=== PATIENT | female | born 1955 | race Caucasian/White ===

== ENCOUNTER 2020-07-12 11:44 | Outpatient (RCR) | payer OTHER, SELFPAY ==
[2020-07-12] MEDS: COVID-19 VACC, MRNA(PFIZER)/PF 30 MCG/0.3 ML SYRINGE IM (18:03)
[2020-08-02] MEDS: COVID-19 VACC, MRNA(PFIZER)/PF 30 MCG/0.3 ML SYRINGE IM (17:44)
== END 2020-10-08 23:59 ==
LOC: IMMUN 11:44
PROVIDERS: PCP Family Medicine; Visit Provider Family Medicine
DX: Z23 Encounter for immunization (principal)
CPT/HCPCS: 0001A; 0002A; 91300

== ENCOUNTER 2022-12-05 17:13 | Emergency (ER) | payer MEDICARE, SELFPAY ==
[2022-12-05 17:13] VITALS: BP 148/92; PULSE 84; RESP 16; TEMP 36.3; O2SAT 97; BMI 37.4
--- NOTE | 2022-12-05 17:25 | RAD_ITS ---
STUDY: X-RAY - LEFT WRIST REASON FOR EXAM: Female, 67 years old. INJURY TECHNIQUE: 3 view(s) of the wrist were obtained. COMPARISON: None. FINDINGS: Acute comminuted nondisplaced nonangulated fracture of the distal metaphysis radius with extension into the radiocarpal joint. Associated ulnar styloid avulsion fracture. Normal radiocarpal articulation. Normal distal radioulnar articulation. Normal carpal bones. There is widening of the scapholunate articulation suggesting a sprain of the scapholunate interosseous ligament. Normal carpometacarpal articulation of the thumb. Normal second through fifth carpometacarpal articulations. Normal visualized metacarpal bones. The soft tissue structures are unremarkable. RAD/Wrist min 3 Views IMPRESSION: 1. Acute comminuted nondisplaced nonangulated fracture of the distal radius with extension the radiocarpal joint with ulnar styloid avulsion fracture. 2. Suspect scapholunate ligament tear. Electronically Signed: Tevin Edmonds MD at 18:13 EDT ,
--- NOTE | 2022-12-05 17:48 | EX.ED.UPPERE ---
HPI History of Present Illness HPI Narrative: Left wrist injury. Chief Complaint: Upper Extremity Injury Informant: patient and spouse/S.O. Occured/Mechanism Mechanism/Context: Yes injury and Yes blunt trauma Onset/Context/Timing Onset: Today and Hours Context: Sudden Onset Timing: Continuous Quality of Pain: Dull and Aching Current Severity: Mild Maximum Severity: Mild Associated Symptoms Associated Symptoms: Negative for Parasthesia, Weakness or Loss of Funtion Narrative Narrative: 67-year-old [id number]-[id number] female. Stepped back off the porch lost her balance fell injuring her left wrist. No other injuries. Did not hit her head. No LOC. No blood thinners. No prior wrist surgery or fracture. Prior similar symptoms: No Recent Illness/Hospitalization: No PFSH PFSH Medical History Type 2 diabetes mellitus Allergy/AdvReac Type Severity Reaction Status Date / Time amoxicillin Allergy Itching Verified 12/05/22 17:16 cinnamon Allergy HIVES Verified 12/05/22 17:16 Social History Smoking Status: Never smoker ROS ROS ED ROS Narrative 10 days recent illness. Review of Systems ROS Unobtainable: Denies due to encephalopathy Constitutional Constitutional ED: Denies chills or fever(s) Eyes Eyes: Denies blurry vision ENT ENT ED: Denies ear pain Cardiovascular Cardiovascular: Denies chest pain Respiratory/Chest Respiratory/Chest: Denies cough Gastrointestinal Gastrointestinal: Denies abdominal pain Genitourinary Genitourinary ED: Denies dysuria Musculoskeletal Musculoskeletal: Denies back pain Integumentary Denies abscess Neurologic Neurologic: Denies headache(s) Psychiatric Psychiatric: Denies anxiety Endocrine Endocrinology: Denies cold intolerance Hematologic/Lymphatic Hematologic/Lymphatic: Denies easy bleeding Allergic/Immunologic Allergic/Immunologic ED: Denies mouth swelling EXAM Physical Exam Narrative Exam Narrative: Well-appearing 67-year-old female. Vital signs stable afebrile. Sitting upright in chair. Accompanied by her . H EENT exam unremarkable atraumatic. Neck nontender. Trachea midline. Lungs clear. Chest wall nontender. Heart regular rate and rhythm no murmur. Abdomen soft nontender. Back and spine nontender. Moving all 4 extremities. Left shoulder and elbow nontender. Left distal radius and ulna are tender and swollen. Normal radial pulse. Skin intact. Left hand neurovascular intact. Right upper extremity normal. Neurologically she is awake and alert with no focal motor deficits. GCS of 15. Const Vital Signs: 12/05/22 17:13 Temperature 97.4 F L Temperature Source Temporal Pulse Rate 84 Respiratory Rate 16 Blood Pressure 148/92 H Blood Pressure Mean 110 Pulse Ox 97 Oxygen Delivery Method Room Air Positive well nourished and well developed; Negative for cachectic, contractures or unkempt General Appearance ED: well developed and NAD; Negative for unkempt, cachectic, contractures, cyanotic or diaphoretic Nutritional Appearance: Negative for cachectic HEENT Reports moist mucous membranes normocephalic and atraumatic; Negative for trauma or tenderness Eyes PERRL and EOMs intact bilaterally General Eye ED: Negative for other Neck full ROM and supple General: Negative for tenderness Lymph Lymphatic: Negative for other Chest Wall inspection of chest normal and palpation of chest normal Resp normal respiratory effort and clear to auscultation bilaterally Effort and Inspection: Negative for pain with movement Auscultation: Negative for rales, rhonchi or wheezes Cardio regular rate, regular rhythm, S1 normal heart sound, S2 normal heart sound and no murmurs GI non-tender, non-distended and no masses Inspection: Negative for abdominal distention Auscultation: normoactive bowel sounds Palpation: soft; Negative for tender, guarding or rebound tenderness present Back/Spine no CVA tenderness General Back: Negative for CVA tenderness Cervical Spine: Negative for cervical spine tenderness Thoracic Spine / Upper Back: Negative for thoracic spinal tenderness Lumbar Spine / Lower Back: Negative for lumbar spinal tenderness Extremity normal to inspection and full ROM Extremity Narrative: Left wrist tender. Swollen. Pain with range of motion. Consistent with fracture. Left hand neurovascularly intact. Skin intact. Elbow and shoulder unremarkable. General Extremety ED: Yes edema General Extremity: edema Neuro oriented x3, CN's II-XII intact bilaterally, moves all extremities, no focal motor deficits and no sensory deficits noted Sensorium / Orientation: alert, oriented to person, oriented to place and oriented to time; Negative for orientation impaired, lethargic or stuporous Motor Exam: strength 5/5 throughout Psych mental status grossly normal Appearance: Negative for unkempt Attitude: No agitated Mood & Affect: Negative for depressed, anxious or tearful Skin General Skin Exam: Negative for petechiae Lesions: no lesions Rashes: no rashes Trauma: no lacerations or abrasions; Negative for abrasion, laceration or puncture MDM MDM MDM Narrative Medical decision making narrative: 67-year-old fell has a left wrist fracture distal radius distal ulna fracture. Placed in a short arm, well-padded AP splint. Orthopedic follow-up. She did not want a thing for pain. She will use Tylenol and Motrin at home. History & Record Review Discussion w/independent historian: Patient and Family Radiography Diagnostic Testing: Left wrist x-ray, 3 views, interpreted by myself shows a minimally displaced distal radius fracture and ulnar styloid fracture. I went over the x-rays with the patient. 3 views. Procedures Upper Extremity Splints Upper Extremity Splint: Orthoglass, Sling and - (Well-padded, Ortho-Glass AP splint. Patient tolerated procedure well. Was instructed on fracture and splint care. Orthopedic follow-up.) Splint Fabrication: Fabricated Location: Left Discharge Plan Triage Chief Complaint: Upper Extremity Injury ED Provider: Yusef Knight Dx/Rx/DC Orders Clinical Impression: Left wrist fracture, Fall Instructions: ED Fracture, Wrist, General Primary Care Provider: Donald Hawkins Referrals: Donald Hawkins DO [Primary Care Provider] - Hernesto Ruiz DO [Med Staff - Active Staff] - As soon as possible Activity Restrictions/Additional Instructions: He is not in the right wrist is much as possible decrease pain and swelling. Keep the splint dry and clean. Motrin and Tylenol for pain. Call and follow-up with the orthopedic physician on Wednesday. They will try to get you appointment this week. Disposition Disposition: Home, Self Care
[2022-12-05 18:14] VITALS: RESP 17
== END 2022-12-05 18:15 | disposition home or self-care (01) ==
PROVIDERS: Emergency Provider Emergency Medicine; PCP Family Medicine; Visit Provider Emergency Medicine
DX: S52.502A Unspecified fracture of the lower end of left radius, initial encounter for closed fracture (principal); E11.9 Type 2 diabetes mellitus without complications; S52.602A Unspecified fracture of lower end of left ulna, initial encounter for closed fracture; W13.8XXA Fall from, out of or through other building or structure, initial encounter
CPT/HCPCS: 29125; 73110; 99283

== ENCOUNTER 2023-02-18 13:30 | Outpatient (RCR) | payer MEDICARE, SELFPAY ==
--- NOTE | 2023-01-29 09:51 | HP.OTEVAL_ITS ---
Patient's Visit Information Visit Information Visit Information: GARDENIA BEARDEN is a 67 year old F, referred to Occupational Therapy by Dr. Hernesto Ruiz, , with a diagnosis of left carpal bone fx. Date of Evaluation: 01/28/23 Occupational Therapist: NICOLA Martin/Noemí, CHT Subjective Subjective: This 67 year old female was seen for OT eval with dx of left fx of carpal bone. DOI was Dec.05. went to ER and was referred to Dr. Ruiz. PT states casted for about 6 weeks - cast removed on 01/15/23. Pt arrives now at 7 weeks and 5 days from DOI. pt states she has noticed a decrease ROM of left forearm and wrist- has some tingling in thumb, IF and RF Median nerve distribution. 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 Pain left wrist: Current Pain Intensity: 4 Pain Intensity Range: 1 and 4 ROM Forearm: right supination/pronation WNL left supination N pronation WNL Wrist: right 70/50 left 40/20 Opposition: Kapandji opposition scale right 10 left 10 ROM Comments: pt demo with a decrease in left wrist and forearm ROM - Strength Clinical Implementation Specialist: right 55# left 10# Lateral Pinch: right 10# left 6# Tripod Pinch: right 8# left 4# Sensation Thumb: right 2.83 left 2.83 interpretation Normal sensation Index: right 2.83 left 2.83 interpretation Normal sensation Middle: right 2.83 left 2.83 interpretation Normal sensation Ring: right 2.83 left 2.83 interpretation Normal sensation Little: right 2.83 left 2.83 interpretation Normal sensation Quick DASH-Disab of Arm,Shoulder& Hand Quick DASH Score: 41.0700 Goals Goal:ROM equal to unaffected hand: Yes Goal:Clinical Implementation Specialist/Pinch strength at least 75% of unaffected hand: Yes Goal:No pain with affected hand use: Yes Goal:Full use of affected hand in daily activities including work: Yes Rehabilitation General Assessment: pt arrives following a left distal radius fx. pt had cast removed on 01/15/23. Pt demo with limited left wrist and forearm ROM and weakness increasing need of assistance for bilateral hand skills with ADLs and IADls. Pt would benefit from skilled OT services 2x week for 6 weeks to regain ROM and strength to return to her PLOF. Today therapist ed. pt on AROM and PROM wrist flex/ext and forearm supination- pt demo understanding and agrees to POC. Rehabilitation Potential: Good Anticipated Interventions Anticipated Interventions: A/AAROM/PROM, Strengthening, Triggerpoint Release, Modalities, Joint Protection/Energy Conservation, Ergonomic Education, Education re Diagnosis and Home Program Visit Plan Frequency: 1-2x /Week Duration: 6 Weeks General Plan: gain ROM for next week initiate light strengthening at week 8 unless otherwise specified by TEXT: Thank you for the opportunity to evaluate your patient. For Medicare and Medicare HMO plans, please review the plan of care and approve it. It will need to be FAXED BACK to us at [phone] for Medicare purposes. Please let me know if there are questions or concerns regarding this plan of care. Physician Signature: Date:
== END 2023-02-18 19:00 | disposition home or self-care (01) ==
LOC: OT 13:30
PROVIDERS: PCP Family Medicine; Referring Provider Orthopaedic Surgery; Visit Provider Orthopaedic Surgery
DX: S62.102D Fracture of unspecified carpal bone, left wrist, subsequent encounter for fracture with routine healing (principal)
CPT/HCPCS: 97110; 97166

== ENCOUNTER 2023-08-24 13:05 | Outpatient (RCR) | payer MEDICARE, SELFPAY | END 2023-08-31 23:59 | LOC: NS 13:05 | PROVIDERS: PCP Family Medicine; Referring Provider Orthopaedic Surgery; Visit Provider Orthopaedic Surgery | DX: Z71.3 Dietary counseling and surveillance (principal); E66.9 Obesity, unspecified; E11.9 Type 2 diabetes mellitus without complications; Z68.38 Body mass index [BMI] 38.0-38.9, adult | CPT/HCPCS: 97802 ==

== ENCOUNTER 2023-09-13 11:38 | Outpatient (RCR) | payer MEDICARE, SELFPAY | END 2023-10-01 23:59 | LOC: NS 11:38 | PROVIDERS: PCP Family Medicine; Referring Provider Orthopaedic Surgery; Visit Provider Orthopaedic Surgery | DX: Z71.3 Dietary counseling and surveillance (principal); E11.9 Type 2 diabetes mellitus without complications; E66.9 Obesity, unspecified; Z68.38 Body mass index [BMI] 38.0-38.9, adult | CPT/HCPCS: 97803 ==

== ENCOUNTER 2023-10-07 09:23 | Outpatient (RCR) | payer MEDICARE, SELFPAY | END 2023-10-31 23:59 | LOC: NS 09:23 | PROVIDERS: PCP Family Medicine; Referring Provider Orthopaedic Surgery; Visit Provider Orthopaedic Surgery | DX: Z71.3 Dietary counseling and surveillance (principal); E11.9 Type 2 diabetes mellitus without complications; E66.9 Obesity, unspecified; Z68.38 Body mass index [BMI] 38.0-38.9, adult | CPT/HCPCS: 97803 ==

== ENCOUNTER 2023-11-03 11:06 | Outpatient (RCR) | payer MEDICARE, SELFPAY | END 2023-12-01 23:59 | LOC: NS 11:06 | PROVIDERS: PCP Family Medicine; Referring Provider Orthopaedic Surgery; Visit Provider Orthopaedic Surgery | DX: Z71.3 Dietary counseling and surveillance (principal); E11.9 Type 2 diabetes mellitus without complications; E66.9 Obesity, unspecified; Z68.38 Body mass index [BMI] 38.0-38.9, adult | CPT/HCPCS: 97803 ==

== ENCOUNTER 2023-12-23 10:08 | Outpatient (RCR) | payer MEDICARE, SELFPAY | END 2024-01-01 23:59 | LOC: NS 10:08 | PROVIDERS: PCP Family Medicine; Referring Provider Orthopaedic Surgery; Visit Provider Orthopaedic Surgery | DX: Z71.3 Dietary counseling and surveillance (principal); E66.9 Obesity, unspecified; E11.9 Type 2 diabetes mellitus without complications | CPT/HCPCS: 97803 ==

== ENCOUNTER → 2024-02-02 | Outpatient (CLI) | payer MEDICARE, SELFPAY ==
--- NOTE | 2024-02-02 16:50 | CT_ITS ---
CT LEFT LOWER EXTREMITY WITH 3-D IMAGING CLINICAL INDICATION: Templating for left TKA. TECHNIQUE: Axial CT images of the left lower extremity (including left hip, left knee, and left ankle) was performed without IV contrast material. Coronal and sagittal reformats were provided. The protocol utilizes one or more of the following dose reduction techniques: automated exposure control, adjustment of mA and/or kV according to patient size, and/or use of iterative reconstruction technique. RADIATION DOSAGE (If Supplied By Facility): CTDIvol = ( 18.76 ) mGy, DLP = ( 1420.78 ) mGycm COMPARISON: Left knee radiographs dated 07/19/2023. FINDINGS: Bones: There is mild degenerative arthrosis of the left hip joint with mild marginal osteophyte formation. There is mild pubic symphysis arthrosis. There is tricompartment degenerative arthrosis of the left knee joint, most severe in the medial femorotibial compartment where there is severe joint space narrowing, marginal osteophyte formation, subchondral sclerosis, and intra-articular gas. There is osseous fragmentation adjacent to the medial malleolus, probably the sequelae of old avulsion injuries. Osseous structures are otherwise intact without evidence of acute fracture or dislocation. No lytic or blastic osseous masses. Soft Tissues: There is a small left knee joint effusion. The deep soft tissue structures are unremarkable. The superficial soft tissues are unremarkable without evidence of edema, hematoma, or foreign body. CT/Extremity Lower without Contra IMPRESSION: Tricompartment degenerative arthrosis of the left knee joint, most severe in the medial femorotibial compartment. Small left knee joint effusion. Electronically Signed: Gustavo Gilliland MD at 16:04 EDT ,
== END | disposition home or self-care (01) ==
LOC: CT 16:48
PROVIDERS: PCP Family Medicine; Referring Provider Orthopaedic Surgery; Visit Provider Orthopaedic Surgery
DX: M17.12 Unilateral primary osteoarthritis, left knee (principal)
CPT/HCPCS: 73700

== ENCOUNTER 2024-02-08 05:30 | Day surgery (SDC) | payer MEDICARE, SELFPAY ==
--- NOTE | 2024-01-31 08:20 | EKG12_ITS ---
Test Reason : PRE OP Blood Pressure : / mmHG Vent. Rate : 074 BPM Atrial Rate : 074 BPM P-R Int : 142 ms QRS Dur : 082 ms QT Int : 352 ms P-R-T Axes : 026 -08 055 degrees QTc Int : 390 ms Normal sinus rhythm Normal ECG Confirmed by AIDEE BARRERA, BEE ([id number]), market editor MARIO CHANDLER ([id number]) on 02/01/2024 6:34:24 AM Referred By: Hernesto Ruiz Confirmed By:BEE HOSKINS MD
[2024-01-31 08:50] LABS: Absolute Lymphocyte Count 1.38 X10^3/uL (0.83-4.51); Absolute Neutrophil Count 5.2 X10^3/uL (2.0-7.7); Basophil# 0.06 X10^3/uL; Basophil% 0.8 % (0-1); Eosinophil# 0.09 X10^3/uL; Eosinophils% 1.2 % (0-5); Hematocrit 39.8 % (37-47); Hemoglobin 12.9 g/dL (12.0-15.0); Lymphocyte # 1.38 X10^3/ul (0.83-4.51); Lymphocyte % 18.8 % (19-41); Mean Corp Hgb Conc 32.4 g/dL (32-36); Mean Corpuscular Hgb 31.3 pg (27.0-32.0); Mean Corpuscular Volume 96.6 fL (81-99); Mean Platelet Vol. 9.8 fl (6.2-12.0); Monocyte# 0.59 X10^3/uL; NRBC Flagged by Analyzer 0 % (0-5); Neutrophil # 5.22 X10^3/uL (2.7-7.7); Neutrophil % 70.9 % (47-70); Platelet Count 230 K/mm3 (150-450); RBC Distribution Width CV 12.2 % (11.6-14.6); RBC Distribution Width SD 43.5 fl (35.1-43.9); Red Blood Count 4.12 M/mm3 (4.2-5.4); White Blood Count 7.4 K/mm3 (4.4-11.0)
[2024-01-31 09:04] LABS: International Normalized Ratio 1.1
[2024-01-31 09:06] LABS: Partial Thromboplast Time 26.6 Seconds (24.1-36.2)
[2024-01-31 09:17] LABS: Anion Gap 7 (5-15); BUN 16 mg/dL (7-18); BUN/Creat Ratio 20.2 RATIO (10-20); Calcium,Total 9.2 mg/dL (8.5-10.1); Chloride 106 mmol/L (98-107); Creatinine, Serum 0.79 mg/dL (0.55-1.02); EST Glomerular Filtration Rate 77 mL/min (>60); Est Glom Filt Rate - Afr Amer 93 mL/min (>60); Glucose 208 mg/dL (74-106); Magnesium 1.8 mg/dL (1.6-2.6); Potassium 4.3 mmol/L (3.5-5.1); Sodium Level 139 mmol/L (136-145)
[2024-01-31 09:22] LABS: Hemoglobin A1c 5.9 % (3.8-5.6)
[2024-02-01 08:12] LABS: Fructosamine 234 umol/L (0-285)
[2024-02-08] VITALS (14 sets, daily range): BP systolic 94–146; BP diastolic 53–83; PULSE 61–80; RESP 10–18; TEMP 36.1–37.4; O2SAT 93–99; BMI 38.4
[2024-02-08] MEDS: Insulin Lispro 100 UNIT/ML INSULN.PEN SC ×2 (06:09→10:40)
[2024-02-08] MEDS: Acetaminophen 500 MG Tablet 1000 MG PO (06:10)
[2024-02-08] MEDS: Celecoxib 200 MG Capsule 400 MG PO (06:10)
[2024-02-08] MEDS: Gabapentin 600 MG Tablet PO (06:10)
[2024-02-08] MEDS: Scopolamine 1mg/72hr Patch 1 PATCH TD (06:11)
[2024-02-08 06:15] LABS: Bedside Glucose 340 mg/dL (74-106)
[2024-02-08] MEDS: Lactated Ringers 1,000 ML 15 ML IV (06:20)
[2024-02-08] MEDS: Magnesium 2 GM for ERAS IV (06:21)
--- NOTE | 2024-02-08 07:05 | HP.PCM_ITS ---
History and Physical Date of Admission: 02/08/24 [facility] [id number] [place] [address] OFFICE VISIT Date of Service: 01/12/24 MR#: [id number] Acct: [id number] Name: GARDENIA BEARDEN Rep #: [id number] : 1955 Provider: Dr. Hernesto Ruiz DO Age/Sex: 68/F Location: [facility] [place] Status: Signed Intake Vital Signs 12/22/2409:00 01/11/2410:57 Height 5 ft 4 in 5 ft 3.5 in Weight: 225 lb BMI 39.2 Intake Visit Reasons: BILATERAL KNEES Accompanied by: Is patient in pain?: Yes Allergies amoxicillin Allergy (Verified 01/12/24 10:58) Itchingcinnamon Allergy (Verified 01/12/24 10:58) HIVES Medications ?Medication ?Instructions ?Recorded ?Confirmed ?Type cholecalciferol (vitamin D3) 25 25 mcg PO DAILY 12/07/22 01/12/24 History mcg (1,000 unit) capsule ezetimibe 10 mg tablet 10 mg PO QHS 12/07/22 01/12/24 History glimepiride 4 mg tablet 4 mg PO DAILY 12/07/22 01/12/24 History ibuprofen 800 mg tablet 800 mg PO PRN PAIN 12/07/22 01/12/24 History lactobacillus combination no.4 3 3,000 mmu cells PO DAILY 12/07/22 01/12/24 History billion cell capsule (Probiotic) lisinopril 30 mg tablet 30 mg PO DAILY 12/07/22 01/12/24 History metoprolol succinate 100 mg 100 mg PO DAILY 12/07/22 01/12/24 History tablet,extended release 24 hr paroxetine HCl 20 mg tablet 20 mg PO QHS 12/07/22 01/12/24 History sulfasalazine 500 mg 0.5 g PO BID 12/07/22 01/12/24 History tablet,delayed release clonazepam 0.5 mg tablet 0.5 mg PO PRN ANXIETY 12/11/22 01/12/24 History albuterol sulfate 90 mcg/actuation inhalation 07/19/23 01/12/24 History aerosol inhaler fluticasone 250 mcg-salmeterol 50 1 inh inhalation BID 01/12/24 01/12/24 History mcg/dose blistr powdr for inhalation (Advair Diskus) Have you fallen in the past year?: No PFSH Medical History Wears contact lenses Wears glasses Post-menopausal Anxiety Alcohol use History of steroid therapy Rheumatoid arthritis Easy bruising Restless legs Back pain Syncope Dietary restriction Heartburn Shortness of breath on exertion CPAP (continuous positive airway pressure) dependence Non-smoker History of pain when walking Hypertension Type 2 diabetes mellitus Surgical History Hx of biopsy Hx of colonoscopy History of H/O knee surgery Hx of cholecystectomy H/O: hysterectomy Family History Father Diabetes HypertensionFather No problems noted. Mother Heart disease Social History household members: spouse Smoking Status: Never smoker alcohol intake: current HPI BILATERAL KNEES Details: This documentation accurately reflects the service provided and the decisions made by me, Dr. Hernesto Ruiz, DO 01/12/24 0809. Part of today?s visit was documented by Emma MERCER, acting as scribe. GARDENIA BEARDEN is a 68 year old F here today for continued bilateral knee pain. Patient did recently complete the Euflexxa series, her last injection was 08/25/23. She states that she may have gotten relief for a few month. She is here to discuss knee replacement. She states that her left knee is worse. Ortho Exam General General: Yes no acute distress Neurologic: Yes alert and Yes oriented x3 Psychologic: Yes reasonable and appropriate Right Knee Skin/Wound: Yes CDI, No erythema, No ecchymosis and No swelling Knee ROM: Yes ROM-Extension -20 to 0 (-5) and Yes ROM-Flexion 0-140 (90) Examination: Yes Med jt line tenderness, No Pain with flexion and No Pain with extention Stability: NML: Anterior Drawer, NML: Posterior Drawer, NML: Valgus 0, NML: Valgus 30, NML: Varus 0 and NML: Varus 30 Patella Translation: 1 Patella Grind: No KNEE: 1/4 pulses. Left Knee Skin/Wound: Yes CDI, No ecchymosis, No erythema and No swelling Homans Sign: No Knee ROM: Yes ROM-Extension -20 to 0 (-3) and Yes ROM-Flexion 0-140 (90) Examination: Yes med jt line tenderness Stability: NML: Anterior Drawer, NML: Posterior Drawer, NML: Valgus 0, NML: Valgus 30, NML: Varus 0 and NML: Varus 30 Patella Translation: 1 KNEE: 1/4 pulses. bilateral edema worse on left up to midleg. Head: Normocephalic Atraumatic Chest: symmetrical rise, non-labored breathing, no audible wheeze Abdomen: no guarding, non-rigid Supplemental Info 07/19/2023 x-ray right knee: Advanced knee arthrosis with varus deformity worse medial compartment and patellofemoral compartment 07/19/2023 x-ray left knee:Advanced knee arthrosis with varus deformity worse medial compartment and patellofemoral compartment 12/05/2022 x-ray left wrist: Intra-articular distal radius fracture relatively nondisplaced also extension just proximal to the distal radial ulnar joint , and some dorsal comminution , there is also a ulnar styloid fracture. In addition moderate first CMC joint arthrosis Coding Level of Care Code Off vis,est,level 3 Diagnoses Obesity E66.9 Obesity type: due to excess calories Primary osteoarthritis of left knee M17.12 Osteoarthritis type: primary Assessment and Plan Assessment and Plan (1) Obesity: Status: Acute Qualifiers: Obesity type: due to excess calories (2) Left knee DJD: Status: Acute Qualifiers: Osteoarthritis type: primary Qualified Code(s): M17.12 - Unilateral primary osteoarthritis, left knee Plan Patient is here today for follow-up on continued bilateral knee pain and would like to discuss knee replacement. She has exhausted all conservative treatment. Educated patient about the procedure. Patient did have a recent Euflexxa series and the last injection was 08/25/23 which did not give her much relief. Risks, benefits and alternatives of surgery reviewed including but not limited to bleeding, infection, nerve, artery and/or tissue damage, fracture, VTE, mechanical feel of the knee, continued pain, stiffness and expected post- operative course. Discussed with patient that after having a knee replacement the most important thing for her to do for the first 6 weeks is to work on her ROM. Advised patient that for the first year she will need an antibiotic for any dental work then after the first year she will only need the antibiotic for invasive dental work. Patient wishes to proceed with a left tka.?Follow up at 2 weeks post-op or sooner if pain, swelling, numbness or associated symptoms, or concerns develop. All questions answered. Patient in agreement of plan. She does wish to proceed with iovera She will need a CT scan for MAKOplasty She will be same-day surgery we will need medical clearance tentative surgery date February 08, 2024 Clinical Quality Measures Falls Risk Screening/Assistive Devices Have you fallen in the past year?: No 01/12/24 1308 <Electronically signed by Hernesto Ruiz DO> Date Hernesto Ruiz DO Cosigner Signature: Date (if applicable) CC: ~ I have examined the patient and the H&P has been reviewed. There are no clinical changes since date of exam.
[2024-02-08] MEDS: Cefazolin 2 GM in 0.9% Normal Saline (100mL Bag) 100 ML IV ×2 (07:30→13:22)
--- NOTE | 2024-02-08 07:30 | KNEE_PTH ---
PATIENT: GARDENIA BEARDEN LOC: [facility] U#:[id number] AGE/SX: 69/F ROOM: RE02/08/[address]: Dr. Hernesto Ruiz DO : 1955 BED: DIS: 02/08/2024 SPEC #: [id number] RECD: 02/08/24 13:14 STATUS: ANNA REGerry #: [id number] FRANKI: 02/08/24 07:[address]: Hernesto Ruiz DEPT: SURGICAL PATHOLOGY RECD BY: Ping gN ENTERED: 02/08/24 13:32 SP TYPE: TOTAL KNEE OTHR DR: Dr. Donald Hawkins DO Tissues: Knee, NOS Procedures: Decalcification bone/plaque Surgery Specimen Level IV HEADER OPERATION: Left total knee replacement robotic arm assist PRE-OP DIAGNOSIS: Obesity, left knee degenerative joint disease TISSUE SUBMITTED: Left knee bone and tissue MICROSCOPIC DIAGNOSIS Bone and tissue of left knee, total knee resection: Severe degenerative joint disease. AM: 02/11/2024 MICROSCOPIC DESCRIPTION Slides are reviewed. GROSS DESCRIPTION Received is one container designated bone and soft tissue left knee. The specimen consists of multiple fragments of collier-yellow bone measuring in aggregate 10.0. x 10.0 x 3.0 cm. No soft tissue is identified. A number of bony fragments contain articular surfaces consistent with tibial plateau and femoral condyle and displaying prominent osteophyte formation, eburnation and bone erosion. Chicken Buyer sections are submitted in one cassette after decalcification. / 02/08/2024 TC:5 CPT: 55597, 62640
--- NOTE | 2024-02-08 07:37 | PRE.ANES_ITS ---
ASA Classification* ASA Classification ASA Classification: 2 Assessment & Plan Anesthesia* Anesthesia Assessment Anesthesia Assessment: Discussed sedation and/or anesthesia options, risks, benefits, and alternatives with patient/parents/legal guardian/POA. Questions invited. The patient/parents/legal guardian/POA seems to understand and agrees to proceed with anesthesia plan. Reviewed the physical assessment, medical history, allergy history and patient home medications list prior to surgery/procedure/anesthetic and documented any changes. Performed airway and anesthesia risk assessments. Anesthesia Type Anesthesia Type: Spinal (see written pre anesthesia record for full assessment) and Block Anesthesia Focused Assessment* Temperature: 99.3 F Pulse Rate: 80 Blood Pressure: 146/72 Respiratory Rate: 18 Pulse Ox: 96 Airway Assessment Mouth opens: >3 cm Mallampati Score: II Focused Labs Anesthesia Preop lab: CBC WBC 7.4 K/mm3 (4.4-11.0) 01/31/24 08:31 RBC 4.12 M/mm3 (4.2-5.4) L 01/31/24 08:31 Hgb 12.9 g/dL (12.0-15.0) 01/31/24 08:31 Hct 39.8 % (37-47) 01/31/24 08:31 Plt Count 230 K/mm3 (150-450) 01/31/24 08:31 CHEMISTRY Potassium 4.3 mmol/L (3.5-5.1) 01/31/24 08:31 Sodium 139 mmol/L (136-145) 01/31/24 08:31 Magnesium 1.8 mg/dL (1.6-2.6) 01/31/24 08:31 BUN 16 mg/dL (7-18) 01/31/24 08:31 Creatinine 0.79 mg/dL (0.55-1.02) 01/31/24 08:31 Glucose 208 mg/dL (74-106) H 01/31/24 08:31 POC Glucose 340 mg/dL (74-106) H 02/08/24 05:51 COAG PT 14.0 SECONDS (11.7-14.9) 01/31/24 08:31 Pre-Assessment Diagnosis/Proposed Procedure Planned Operative Procedure(s): (L) ERAS Left Total Knee Replacement Robotic Arm Assisted Anesthesia History Anesthesia History - forging engineer: Anesthesia History - forging engineer Hx Hospitalization No 01/24/24 08:57 Any Problems With Anesthesia No 01/24/24 08:57 Cholinesterase deficiency No 01/24/24 08:57 You/Your Family Experience No 01/24/24 08:57 fever (hyperthermia) with Relationship Recent Exposure to Contagious No 02/08/24 05:52 Disease Does patient have nerve No 01/24/24 08:57 stimulator Patient instructed to have device shut off --Does patient have Pacemaker No 02/08/24 06:01 or ICD? When Was Last Pacemaker Check QUESTION #4 FULL TEXT: You/Your Family Experience fever (hyperthermia) with Anesthesia Last Oral Intake Last Oral intake: Last Oral Intake NPO since 04:30 02/08/24 06:01 Meds taken in AM with sips of Yes 02/08/24 06:01 water? Meds patient instructed to take am of surgery PONV PONV - forging engineer: PONV - forging engineer Female No 01/24/24 08:57 HX of Motion Sickness No 01/24/24 08:57 HX of N/V After Surgery No 01/24/24 08:57 Non-Smoker Yes 01/24/24 08:57 Duration of Surgery greater No 01/24/24 08:57 than 60 minutes Number of Risk Factors 1 01/24/24 08:57 PONV Score Low Risk 01/24/24 08:57 Height & Weight Height & Weight: Anesthesia: Height & Weight Height 5 ft 4 in 02/08/24 06:01 Weight: 101.605 kg 02/08/24 06:01 Body Mass Index (BMI) 38.4 02/08/24 06:01 Respiratory Assessment Respiratory Assessment - forging engineer: Respiratory Tract Infection Hx - forging engineer Hx Respiratory Tract Infection No 01/24/24 08:57 STOP Sleep Apnea STOP Sleep Apnea - forging engineer: STOP Sleep Apnea - forging engineer Hx Hypertension Yes 01/24/24 08:57 Hx Sleep Apnea Yes 01/24/24 08:57 CPAP No 01/24/24 08:57 BIPAP Yes 01/24/24 08:57 Do you snore loudly (louder than talking or can be heard Do you often feel tired/ fatigued/ sleepy during daytime? Has anyone observed you stop breathing during sleep? STOP Results Positive 01/24/24 08:57 QUESTION #5 FULL TEXT : Do you snore loudly (louder than talking or can be heard through closed doors)? Tobacco Use History Tobacco Use History - forging engineer: Tobacco Use History - forging engineer Tobacco Use Smoking Status Never smoker 01/24/24 08:57 Hx Tobacco Use No 01/24/24 08:57 Years Smoking Packs Smoked per Day Smoking Cessation Date was within the last 15 years Hx Smoking Cessation Date Hx Smoking Cessation Counseling Hematologic Medial History Hematologic Hx - forging engineer: Hematologic Medical Hx - general worker Hx of Blood Transfusion No 01/24/24 08:57 Hx of Transfusion in last 3 No 01/24/24 08:57 Months Date of Last Transfusion (if within last 3 months) Ever experience any problems No 01/24/24 08:57 with transfusion(s)? Specify any problems Hx of Preganancy in last 3 No 01/24/24 08:57 Months Nurse Filling Out Transfusion VLEHMAN 01/24/24 08:57 & Questions: Date: 01/24/24 01/24/24 08:57 Time: 09:09 01/24/24 08:57 Patient unable to answer at this time (ie. confused, unrespo /Reproduction History /Reproductive History - forging engineer: /Reproductive Hx- forging engineer Hx Now No 01/24/24 08:57 Gestational Age (in weeks): EDC: Hx Hx Para Hx Section SAB No 12/11/22 09:55 Active Medications Active Medications: Current Medications Generic Name Dose Route Start Last Admin Trade Name Freq PRN Reason Stop Dose Admin Tranexamic Acid 1,000 mg/ 110 mls @ 660 mls/hr 02/08/24 07:30 Sodium Chloride IV 02/08/24 07:39 X1 ONE Tranexamic Acid 1,000 mg/ 110 mls @ 660 mls/hr 02/08/24 07:30 Sodium Chloride IV 02/08/24 07:39 X1 ONE Lactated Ringer's 1,000 mls @ 125 mls/hr 02/08/24 07:30 IV 02/08/24 15:29 .Q8H KEYSHAWN Magnesium Sulfate 2 gm/ 104 mls @ 208 mls/hr 02/08/24 07:30 02/08/24 06:21 Dextrose IV 02/08/24 07:59 208 mls/hr X1 ONE Administration Cefazolin Sodium 2 gm/ Sodium 110 mls @ 150 mls/hr 02/08/24 07:30 Chloride IV 02/08/24 08:13 PREOP ONE Lactated Ringer's 1,000 mls @ 15 mls/hr 02/08/24 05:45 02/08/24 06:20 IV 15 mls/hr .Q48H KEYSHAWN Administration Insulin Human Lispro 1 - 6 unit 02/08/24 07:30 02/08/24 06:09 Insulin Lispro 100 Unit/Ml Insuln.Pen SC 5 u Q4H PRN PRN Administration BG>/= 180, SEE PROTOCOL Protocol PFS Medical History Diabetes Arthritis High cholesterol BiPAP (biphasic positive airway pressure) dependence Sleep apnea History of pain when walking History of echocardiogram Cardiology follow-up encounter Wears contact lenses Wears glasses Post-menopausal Anxiety Alcohol use History of steroid therapy Rheumatoid arthritis Easy bruising Restless legs Back pain Syncope Dietary restriction Heartburn Shortness of breath on exertion CPAP (continuous positive airway pressure) dependence Non-smoker History of pain when walking Hypertension Type 2 diabetes mellitus Home Medications ?Medication ?Instructions ?Recorded ?Last Taken ?Type cholecalciferol (vitamin D3) 25 25 mcg PO DAILY 12/07/22 02/05/24 History mcg (1,000 unit) capsule ezetimibe 10 mg tablet 10 mg PO QHS 12/07/22 02/07/24 19:00 History glimepiride 4 mg tablet 2 mg PO DAILY 12/07/22 02/07/24 19:00 History ibuprofen 800 mg tablet 800 mg PO Q8H PRN PAIN 12/07/22 Unknown History lactobacillus combination no.4 3 3,000 mmu cells PO DAILY 12/07/22 02/07/24 07:00 History billion cell capsule (Probiotic) metoprolol succinate 100 mg 100 mg PO DAILY 12/07/22 02/08/24 04:30 History tablet,extended release 24 hr paroxetine HCl 20 mg tablet 20 mg PO QHS 12/07/22 02/07/24 19:00 History sulfasalazine 500 mg 0.5 g PO BID 12/07/22 02/07/24 19:00 History tablet,delayed release clonazepam 0.5 mg tablet 0.5 mg PO DAILY PRN ANXIETY 12/11/22 02/08/24 04:30 History albuterol sulfate 90 mcg/actuation 2 inh inhalation Q4H PRN shortness 07/19/23 Unknown History aerosol inhaler of breath or wheezing fluticasone 250 mcg-salmeterol 50 1 inh inhalation BID 01/12/24 02/08/24 04:30 History mcg/dose blistr powdr for inhalation (Advair Diskus) lisinopril 40 mg tablet 40 mg PO DAILY 01/24/24 02/08/24 04:30 History Allergy/AdvReac Type Severity Reaction Status Date / Time amoxicillin Allergy Itching Verified 02/08/24 05:52 cinnamon Allergy HIVES Verified 02/08/24 05:52 Family History Father Diabetes Hypertension Father No problems noted. Mother Heart disease Surgical History Hx of biopsy Hx of colonoscopy History of H/O knee surgery Hx of cholecystectomy H/O: hysterectomy Social History household members: spouse Smoking Status: Never smoker alcohol intake: current Review of Systems (Anesthesia) ROS Narrative System reviewed and no additional complaints, except as documented.
[2024-02-08] MEDS: dexAMETHasone 10 MG/ML Vial IV (07:45)
[2024-02-08] MEDS: TXA 1000mg in NS100 100ml (IVPB at Incision) 660 MG IV (07:47)
[2024-02-08 08:25] LABS: Bedside Glucose 176 mg/dL (74-106)
[2024-02-08] MEDS: TXA 1000mg in NS100 100ml (IVPB at Closure) 660 MG IV (08:29)
[2024-02-08] MEDS: Bupivacaine 0.5% PF 10 ML VIAL (09:06)
[2024-02-08] MEDS: 0.9% Normal Saline (Pres. free 10 ML Vial (09:06)
[2024-02-08] MEDS: Epinephrine (1 mg/ml) 1 MG/ML VIAL (09:06)
[2024-02-08] MEDS: dexAMETHasone 4 MG/ML Vial (09:06)
--- NOTE | 2024-02-08 09:53 | PCM.OP.BLANK ---
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 My physician assistant professor of archaeology was a vital part of this case. He was important in appropriate retraction during the case, and protection of soft tissues during procedure. His intimate knowledge of the case and my steps aided in safe and expedient completion of the procedure as well as appropriate position of the extremity during the case. He was also vital in assisting with closure under my direct supervision. Indication for procedure: This is a 69-year-old female with long standing degenerative joint disease of the knee who has failed conservative treatment and wished to proceed with elective total knee arthroplasty. Risk benefits and alternatives were reviewed including; risk of bleeding, infection, nerve artery and tissue damage, continued pain, postoperative stiffness, venous thromboembolism, need for postoperative rehabilitation, mechanical feel to the knee, and expected postoperative course. The pre- operative CT and templating was performed with component sizing. Procedure: The patient was met in the preoperative holding area. The operative extremity was identified by both patient and physician and was marked. Patient was met by anesthesia. An adductor canal block was placed by anesthesia postoperatively the patient was brought back to the operating room on a wheeled cart and transferred to the operating table in the supine position. Anesthesia was started. A well-padded tourniquet was placed on the operative extremity. The patient was prepped and draped in the usual sterile fashion. A timeout was called to ensure the proper patient procedure and extremity were being contemplated. An esmarch was used to exsanguinate the extremity. The tourniquet was inflated. A 10 blade scalpel was used to make a midline incision down through the skin and subcutaneous tissue. Skin retractors placed. Bovie and Aquamantis were used to perform meticulous hemostasis. full-thickness flaps were elevated medial and lateral along the joint capsule. A deep blade scalpel was used to perform a medial parapatellar arthrotomy. The knee was brought to full extension. A bovie was used to release the soft tissues off the most proximal aspect of the medial tibial plateau, a three-quarter inch curved osteotome was also used in this process. The infrapatellar fat pad was excised. The suprapatellar fat pad was excised partially anteriorolateraly and portion the anterioromedial pad was elevated from the femur. At this point our intra-articular femoral array was placed at a 45 degree angle proximal and posterior to the medial epicondyle. femoral checkpoint was placed at this time. Our tibial array was placed partially intra incisional 1 stab incision was made for the inferior pin with a 15 blade scaple, and pins were placed and attached to the tibial array , tibial checkpoint was placed in the proximal tibial metaphysis. Tourniquet was let down. At this point registration voss were taken throughout the knee . Once the knee was registered we then tensioned the medial and lateral ligaments in extension and 90 degrees of flexion. We then used these numbers to adjust our components within parameters to balance the knee in both flexion and extension once this was done on our monitor we then proceeded with using the robotic arm to make our tibial plateau cut, anterior and posterior chamfer and distal femur cuts. we removed the cut fragments with the use of a bovie and Zeferino, we did use a lamina marine equipment sales engineer to insure we visualized and removed all posterior osteophytes and at this time also used the Aquamantis on the posterior joint capsule. we then trialed and achieved the desired plan with a well-balanced knee. we used the green probe to stefan the corresponding tibial rotation based on our CT template. Lug holes were drilled in the femur the tibia preparation was completed with the appropriate sized base plate pinned based on previous rotation stefan. An appropriate sized fin punch was used on the tibia and 4 corner drill was used for the press fit component and the patella was prepared by first using a caliper to ensure sufficient bone stock and a patellar reamer to remove the desired amount of bone. lug holes drilled for an asymmetric poly. We then brought the knee through range of motion with excellent patellar tracking. We thoroughly irrigated the knee. Trial components were removed a posterior capsular injection was preformed with our standard cocktail. In addition the aqua Mantis was also used to aid in hemostasis. Betadine rinse was allowed to sit and washed out completely. Components were press-fit into place. Aricept rinse was then used followed by several more liters of irrigation after it was allowed to sit. The joint capsule was closed with #1 Ethibond [id number] in the upper part of the arthrotomy and #1 Vicryl in the lower part of the arthrotomy. , Followed by 2-0 Vicryl in the subcutaneous tissues with sherrie in the skin. Arrays and checkpoints were removed prior to closure all counts were correct stab incisions were closed with a staple standard dressing in the form of Mepilex AG for the main incision and a small Mepilex over the pin holes. Thigh-high EPHRAIM hose applied over top of dressing. Patient tolerated the procedure well and was directed to PACU in stable condition . There were no intraoperative complications.
--- NOTE | 2024-02-08 10:12 | PCM.POST.ANE ---
Anesthesia: Postop Eval I Current Vital Signs Temperature: 97.9 F Pulse Rate: 63 Blood Pressure: 94/57 Respiratory Rate: 18 Pulse Ox: 98 Oxygen Delivery Method: Simple Mask Oxygen Flow Rate (L/min): 6 Assessment Airway patent: Yes Spontaneous unlabored respirations: Yes Mental status: Awake and Calm nausea: No Vomiting: No Anesthesia Complication: No Fluid Hydration Crystalloid volume administer (ml): 1,200 Total IV fluid infused: 1,200 Progress Note Post-operative progress note: pHENYLEPHRINE 200MCG FOR INITIAL BP 84/65 Anesthesia document: Postop Eval 1 completed: Yes
--- NOTE | 2024-02-08 10:15 | RAD_ITS ---
STUDY: X-RAY - LEFT KNEE REASON FOR EXAM: Female, 69 years old. Postop in PACU -- in PACU TECHNIQUE: 2 view(s) of the knee. COMPARISON: Comparison is made with prior study dated July 19, 2023. FINDINGS: Normal visualized distal femur. Normal visualized proximal tibia and fibula. Normal proximal tibiofibular articulation. The patient is status post total knee replacement. There is good alignment. Postoperative soft tissue changes. RAD/Knee 1 or 2 Views IMPRESSION: Status post total knee replacement. There is good alignment. Postoperative soft tissue changes. Electronically Signed: Jim Hector MD at 11:02 EDT ,
[2024-02-08 11:09] LABS: Bedside Glucose 191 mg/dL (74-106)
[2024-02-08] MEDS: oxyCODONE 5 MG Tablet PO ×2 (11:31→11:45)
[2024-02-08] MEDS: Ketorolac 30 MG/ML Syringe 15 MG IV (13:00)
--- NOTE | 2024-02-08 13:01 | DCINST_ITS ---
Discharge Instructions Diet Discharge Diet: No restrictions Activity Weight Bearing Status: Full weight bearing Dressing / Incision Call your doctor if you observe: Shortness of breath and Chest pain Additional Dressing/Incision Instructions:: Ice and elevate lower extremities 2 weeks while not ambulating. Ambulation is encouraged. Weight bearing as tolerated. Use assistive devise for stability. Encourage FULL knee extension and flexion 1 time EVERY time you get up and down and MULTIPLE times per day. No showering until 72 hours after surgery. Begin showering postop day #3. Remove the dressing prior to shower and gently wash with warm water and antibacterial soap then pat dry and place abdominal pad (or plain gauze) and EPHRAIM hose over top. This is to be done daily. Do not submerge for 3 weeks. If not showering daily after the initial 72 hours then you must clean incision and change dressing daily. Do not allow animals near the incision area. Keep clean. Follow anti-coagulation recommendations as prescribed. Do not take any NSAIDs while on blood thinner. Do not take any additional narcotic pain medication other than what was prescribed on your surgery day without discussing with physician. Narcotic medication can be addictive. Do not drink alcohol while taking narcotics. Supplement narcotic prescription with acetaminophen 1000 mg 4 times a day. Start physical therapy. If you are not currently scheduled for physical therapy or you are unsure of appointment time please call office [facility] to arrange. Call Dr. Ruiz with any concerns. Follow Up Care Please Follow Up With: Hernesto Ruiz DO When: 2 weeks Test Results: Test results from this visit will be discussed in further detail at your follow- up appointment, if applicable. Discharge Plan Admission Primary Reason for Your Visit: Left total knee arthroplasty Attending Provider: Hernesto Ruiz Primary Care Provider: Donald Hawkins Instructions Print Language: Nigerien Discharge Orders/Prescriptions Prescriptions: New acetaminophen 500 mg tablet 1,000 mg PO Q6H Qty: 100 0RF cephalexin 500 mg capsule 1,000 mg PO Q8H Qty: 6 0RF Rx Instructions: Take 3 tabs before you go to bed and 3 tabs after 5 AM morning after surgery when you wake up oxycodone 5 mg tablet 5 - 10 mg PO Q6H PRN (Reason: pain) 7 Days Qty: 60 0RF Eliquis 2.5 mg tablet 2.5 mg PO BID Qty: 30 0RF Rx Instructions: Begin morning after surgery. Continued glimepiride 4 mg tablet 2 mg PO DAILY Patient Comments: take 1 tablet by mouth every morning with BREAKFAST ezetimibe 10 mg tablet 10 mg PO QHS Patient Comments: take 1 tablet by mouth once daily metoprolol succinate 100 mg tablet extended release 24 hr 100 mg PO DAILY Patient Comments: take 1 tablet by mouth every morning paroxetine HCl 20 mg tablet 20 mg PO QHS Patient Comments: take 1 tablet by mouth once daily sulfasalazine 500 mg tablet,delayed release (DR/EC) 0.5 g PO BID Patient Comments: take 1 tablet by mouth twice a day cholecalciferol (vitamin D3) 25 mcg (1,000 unit) capsule 25 mcg PO DAILY Probiotic 3 billion cell capsule 3,000 mmu cells PO DAILY Rx Instructions: administer with a meal albuterol sulfate 90 mcg/actuation HFA aerosol inhaler 2 inh inhalation Q4H PRN (Reason: shortness of breath or wheezing) fluticasone propion-salmeterol [Advair Diskus] 250-50 mcg/dose blister with device 1 inh inhalation BID clonazepam 0.5 mg tablet 0.5 mg PO DAILY PRN Patient Comments: take 1 tablet by mouth once daily lisinopril 40 mg tablet 40 mg PO DAILY Discontinued ibuprofen 800 mg tablet 800 mg PO Q8H PRN (Reason: PAIN) Patient Comments: take 1 tablet by mouth every 8 hours if needed Other Ambulatory Orders: 12 Lead EKG (Routine) Timeframe: 20240131 Location: None Selected Ordered By: Dr. Hernesto Ruiz Referrals / Follow Up: Donald Hawkins DO [Primary Care Provider] - Disposition Disposition (needs filled in before D/C Order can be placed): Home, Self Care
== END 2024-02-08 15:19 | disposition home or self-care (01) ==
LOC: SDC 05:30 → AC 05:31
PROVIDERS: PCP Family Medicine; Referring Provider Orthopaedic Surgery; Visit Provider Orthopaedic Surgery
PROC: 0SRD0JZ Replacement of Left Knee Joint with Synthetic Substitute, Open Approach (ICD-10-PCS; CPT 27447; principal; 2024-02-08 07:00)
DX: M17.12 Unilateral primary osteoarthritis, left knee (principal); E11.9 Type 2 diabetes mellitus without complications; E66.09 Other obesity due to excess calories; Z79.84 Long term (current) use of oral hypoglycemic drugs; I10 Essential (primary) hypertension; M21.162 Varus deformity, not elsewhere classified, left knee; M24.562 Contracture, left knee; Z79.899 Other long term (current) drug therapy; E78.00 Pure hypercholesterolemia, unspecified
CPT/HCPCS: 27447; S2900; 01402; 64450; 36415; 73560; 80048; 82962; 82985; 83036; 83735; 85025; 85610; 85730; 86850; 86900; 86901; 87081; 88305; 88311; 93005; 97162; C1776; J7120; J2405; J3490